=== PATIENT | female | born 1995 | race American Indian/Alaskan Native ===

== ENCOUNTER 2017-01-28 15:20 | Emergency (ER) | payer BC, OTHER ==
[2017-01-28] MEDS ORDERED: Alum-Mag Hydrox-Simethicone Susp (30 mL) PO STA (16:11)
--- NOTE | 2017-01-28 16:15 | ED PDOC ---
Arrival/HPI - General Chief Complaint: Abdominal Pain Time Seen by Provider: 01/28/17 16:11 Historian: Patient - History of Present Illness Narrative History of Present Illness (Text): 01/28/17 16:05 Deon Jung is a 21 year old female who presents to the emergency department complaining of sharp, intermittent epigastric abdominal pain and constant nausea for 2 days. Patient notes that she also experiences mild intermittent vaginal spotting for 3 days. Her last menstrual cycle was at the end of December, patient is on control pills. Patient says that she has also experienced a decrease in her appetite. Patient denies any urinary symptoms, surgical history , or any other complaint at this time. Time/Duration: < week Symptom Onset: Gradual Symptom Course: Worsening Severity Level: 7 Activities at Onset: Light Context: Home Past Medical History - Provider Review Nursing Documentation Reviewed: Yes - Infectious Disease Hx of Infectious Diseases: None - Reproductive Menopause: No - Psychiatric Hx Substance Use: No - Anesthesia Hx Anesthesia: No Hx Anesthesia Reactions: No Hx Malignant Hyperthermia: No Family/Social History - Physician Review Nursing Documentation Reviewed: Yes Family/Social History: No Known Family HX Smoking Status: Never Smoked Hx Alcohol Use: No Hx Substance Use: No Allergies/Home Meds Allergies/Adverse Reactions: Allergies No Known Allergies Allergy (Verified 01/28/17 15:56) Review of Systems - Review of Systems Constitutional: absent: Fevers, Night Sweats Eyes: absent: Vision Changes ENT: absent: Hearing Changes Respiratory: absent: SOB, Cough Cardiovascular: absent: Chest Pain Gastrointestinal: Abdominal Pain, Nausea, Appetite Changes Genitourinary Female: absent: Urine Output Changes Musculoskeletal: absent: Back Pain, Neck Pain Skin: absent: Rash Neurological: absent: Headache Endocrine: absent: Diaphoresis Hemo/Lymphatic: absent: Easy Bleeding Psychiatric: absent: Depression Physical Exam Vital Signs Reviewed: Yes Vital Signs Temp Pulse Resp BP Pulse Ox 01/28/17 18:20 92 H 16 142/70 96 01/28/17 16:40 98.7 F 70 18 124/60 99 01/28/17 15:52 98.4 F 95 H 19 129/83 100 Temperature: Afebrile Blood Pressure: Normal Pulse: Tachycardic Respiratory Rate: Normal Appearance: Positive for: Well-Appearing, Non-Toxic, Comfortable Pain Distress: None Mental Status: Positive for: Alert and Oriented X 3 - Systems Exam Head: Present: Atraumatic, Normocephalic Pupils: Present: PERRL Extroacular Muscles: Present: EOMI Conjunctiva: Present: Normal Mouth: Present: Moist Mucous Membranes Neck: Present: Normal Range of Motion Respiratory/Chest: Present: Clear to Auscultation, Good Air Exchange. No: Respiratory Distress, Accessory Muscle Use Cardiovascular: Present: Regular Rate and Rhythm, Normal S1, S2. No: Murmurs Abdomen: Present: Tenderness (Epigastric Tenderness), Normal Bowel Sounds. No: Distention, Peritoneal Signs, Rebound, Guarding Back: Present: Normal Inspection Upper Extremity: No: Cyanosis, Edema Lower Extremity: No: Edema Neurological: Present: GCS=15, Other (no focal deficits) Skin: Present: Warm, Dry, Normal Color. No: Rashes Psychiatric: Present: Alert, Oriented x 3, Normal Insight, Normal Concentration Medical Decision Making ED Course and Treatment: 01/28/17 17:51 the pt reports significant improvement in her pain. mild epigastric ttp, no lower abdominal tenderness. she is resting quietly and appears comfortable in no distress. she has a pcp and will follow up next week and return if worse. - Lab Interpretations Lab Results: 01/28/17 15:37 01/28/17 15:37 Lab Results 01/28/17 15:37: WBC 5.7, RBC 4.05, Hgb 13.2, Hct 37.0, MCV 91.4, MCH 32.6, MCHC 35.7, RDW 12.1, Plt Count 240, MPV 10.4, Gran % 60.9, Lymph % (Auto) 32.1, Ross % (Auto) 6.1 H, Eos % (Auto) 0.7 L, Baso % (Auto) 0.2, Gran # 3.50, Lymph # 1.8 , Ross # 0.4, Eos # 0.0, Baso # 0.01, Sodium 142, Potassium 3.4 L, Chloride 105 , Carbon Dioxide 25, Anion Gap 15, BUN 10, Creatinine 0.7, Est GFR ( Amer ) > 60, Est GFR (Non-Af Amer) > 60, Random Glucose 104, Calcium 9.3, Total Bilirubin 0.6, AST 28, ALT 37, Alkaline Phosphatase 48, Total Protein 8.7 H, Albumin 4.2, Globulin 4.5, Albumin/Globulin Ratio 0.9 L, Lipase 102, Urine Color Yellow, Urine Appearance Clear, Urine pH 6.0, Ur Specific [employer] >= 1.030 , Urine Protein 30 H, Urine Glucose (UA) Negative, Urine Ketones 40 H, Urine Blood Large H, Urine Nitrate Negative, Urine Bilirubin Negative, Urine Urobilinogen 0.2, Ur Leukocyte Esterase Negative, Urine RBC 25 - 30, Urine WBC 2 - 5, Ur Epithelial Cells Many, Amorphous Sediment Few, Urine Bacteria Many, Urine Other Uyeast, Urine HCG, Qual Negative - Medication Orders Current Medication Orders: Discontinued Medications Al Hydrox/Mg Hydrox/Simethicone (Maalox Plus 30 Ml) 30 ml PO STAT STA Stop: 01/28/17 16:12 Last Admin: 01/28/17 17:00 Dose: 30 ML Lidocaine HCl (Lidocaine 2% Viscous) 15 ml PO STAT STA Stop: 01/28/17 16:12 Last Admin: 01/28/17 17:00 Dose: 15 ML Ondansetron HCl (Zofran Inj) 4 mg IVP ONCE ONE Stop: 01/28/17 16:12 Last Admin: 01/28/17 17:00 Dose: 4 MG IVP Administration Document 01/28/17 17:00 [place] (Rec: 01/28/17 17:10 OH [id number]) Charges for Administration # of IVP Administrations 1 - Scribe Statement The provider has reviewed the documentation as recorded by the Scribe Marylin Barahona Provider Scribe Attestation: All medical record entries made by the Scribe were at my direction and personally dictated by me. I have reviewed the chart and agree that the record accurately reflects my personal performance of the history, physical exam, medical decision making, and the department course for this patient. I have also personally directed, reviewed, and agree with the discharge instructions and disposition. Disposition/Present on Arrival - Present on Arrival Any Indicators Present on Arrival: No History of DVT/PE: No History of Uncontrolled Diabetes: No Urinary Catheter: No History of Decub. Ulcer: No History Surgical Site Infection Following: None - Disposition Have Diagnosis and Disposition been Completed?: Yes Diagnosis: Epigastric pain Disposition: HOME/ ROUTINE Disposition Time: 17:52 Condition: IMPROVED Discharge Instructions (ExitCare): Gastritis (ED), Diet for Ulcers and Gastritis (ED) Additional Instructions: Please follow up with your doctor next week. Return to the ER for any worsening symptoms or for any other concerns. Prescriptions: Sucralfate [Carafate] 1 gm PO TID #6 dose Famotidine [Pepcid] 20 mg PO DAILY #14 tab Referrals: PCP,NO [Primary Care Provider] - Follow up with primary
[2017-01-28 16:42] VITALS: TEMP 98.7
[2017-01-28 16:43] VITALS: BMI 23.0
[2017-01-28 17:14] LABS: ADD MANUAL DIFF? NO
[2017-01-28 17:21] LABS: URINE BILIRUBIN NEGATIVE (NEGATIVE); URINE BLOOD LARGE (NEGATIVE); URINE GLUCOSE (UA) NEGATIVE (NEGATIVE); URINE KETONE 40 mg/dL (NEGATIVE); URINE LEUKOCYTE ESTERASE NEGATIVE Leu/uL (NEGATIVE); URINE PROTEIN 30 mg/dL (<30 mg/dL); URINE UROBILINOGEN 0.2 E.U./dL (<1 E.U./dL)
[2017-01-28 17:24] LABS: URINE APPEARANCE CLEAR (CLEAR); URINE COLOR YELLOW (YELLOW)
[2017-01-28 17:32] LABS: URINE AMORPHOUS SEDIMENT FEW; URINE BACTERIA MANY (NEG); URINE EPITHELIAL CELLS MANY /hpf (0-5); URINE RBC 25 - 30 /hpf (0-2)
[2017-01-28 17:37] LABS: ALB/GLOB RATIO 0.9 (1.1-1.8); ALKALINE PHOSPHATASE 48 U/L (38-133); ALT/SGPT 37 U/L (7-56); AST/SGOT 28 U/L (15-39); BILIRUBIN,TOTAL 0.6 mg/dL (0.2-1.3); BLOOD UREA NITROGEN 10 mg/dL (7-21); CALCIUM 9.3 mg/dL (8.4-10.5); CARBON DIOXIDE 25 mmol/L (21-33); CHLORIDE 105 mmol/L (98-107); GFR AFRICAN-AMERICAN > 60; GLUCOSE,RANDOM 104 mg/dL (70-110); LIPASE 102 U/L (23-300); POTASSIUM 3.4 mmol/L (3.6-5.0); SODIUM 142 mmol/L (132-148); TOTAL PROTEIN 8.7 g/dL (5.8-8.3)
[2017-01-28 17:42] LABS: BASO # 0.01 K/mm3 (0.0-2.0); BASO % 0.2 % (0.0-3.0); EOS % 0.7 % (1.5-5.0); GRAN % 60.9 % (50.0-68.0); LYMPH # 1.8 (1.2-3.4); LYMPH % 32.1 % (22.0-35.0); MEAN CELL VOLUME 91.4 fL (80.0-105.0); MEAN CORPUSCULAR HEMOGLOBIN 32.6 pg (25.0-35.0); MEAN CORPUSCULAR HGB CONC 35.7 g/dl (31.0-37.0); MEAN PLATELET VOLUME 10.4 fl (7.0-11.0); MONO # 0.4 (0.1-0.6); MONO % 6.1 % (1.0-6.0); PLATELET COUNT 240 10^3/uL (120.0-450.0); RED CELL DISTRIBUTION WIDTH 12.1 % (11.5-14.5); WHITE BLOOD COUNT 5.7 10^3/ul (4.5-11.0)
[2017-01-28 19:17] VITALS: BP 142/70; PULSE 92; RESP 16; O2SAT 96
== END 2017-01-28 18:20 | disposition home or self-care (01) ==
LOC: ED 15:20
DX: R10.13 Epigastric pain (principal)
CPT/HCPCS: 80053; 81001; 83690; 84703; 85025; 87491; 87591; 96374; 99284; J2405

== ENCOUNTER 2018-07-11 22:21 | Emergency (ER) | payer BC ==
[2018-07-11 22:34] VITALS: BMI 27.6
[2018-07-11 22:39] VITALS: TEMP 99.1
[2018-07-12 00:50] VITALS: BP 132/71; PULSE 81; RESP 17; O2SAT 99
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
== END 2018-07-12 00:46 | disposition home or self-care (01) ==
LOC: ED 22:21
DX: S93.401A Sprain of unspecified ligament of right ankle, initial encounter (principal); V86.99XA Unspecified occupant of other special all-terrain or other off-road motor vehicle injured in nontraffic accident, initial encounter